=== PATIENT | male | born 1955 | race African-American/Black ===

== ENCOUNTER 2016-08-04 16:54 | Inpatient (IN) | payer OTHER ==
[2016-08-04 19:09] VITALS: BMI 19.8
--- NOTE | 2016-08-04 23:00 | HP ---
CIWA Score - CIWA Score Nausea/Vomitin Muscle Tremors: 2 Anxiety: 3 Agitation: 2 Paroxysmal Sweats: 1-Minimal Palms Moist Orientation: 1-Uncertain about Date Tacttile Disturbances: 0-None Auditory Disturbances: 1-Very Mild Visual Disturbances: 1-Very Mild Sensitivity Headache: 2-Mild CIWA-Ar Total Score: 15 Admission ROS BHS - HPI Chief Complaint: WITHDRAWAL SYMPTOMS Allergies/Adverse Reactions: Allergies Allergy/AdvReac Type Severity Reaction Status Date / Time No Known Allergies Allergy Verified 10/07/15 14:05 History of Present Illness: 61 Y.O. MAN WITH AN EXTENSIVE HISTORY ALCOHOL DEPENDENCE IS SEEKING DETOX. HE WAS HERE FOR DETOX AND REHAB IN 10/2015. HE REPORTS HIS LONGEST PERIOD OF SOBRIETY IS 3 YEARS. Exam Limitations: Physical Impairment (WALKS WITH CANE) - Ebola screening Have you traveled outside of the country in the last 21 days: No Have you had contact with anyone from an Ebola affected area: No Have you been sick,other than usual withdrawal symptoms: No Do you have a fever: No - Review of Systems Constitutional: Loss of Appetite EENT: reports: No Symptoms Reported Respiratory: reports: No Symptoms reported Cardiac: reports: No Symptoms Reported GI: reports: No Symptoms Reported : reports: No Symptoms Reported Musculoskeletal: reports: Back Pain Integumentary: reports: No Symptoms Reported Neuro: reports: No Symptoms reported Endocrine: reports: No Symptoms Reported Hematology: reports: No Symptoms Reported Psychiatric: reports: Anxious, Depressed Other Systems: Reviewed and Negative Patient History - Patient Medical History Hx Anemia: No Hx Asthma: Yes (ON ALBUTEROL INHALER) Hx Chronic Obstructive Pulmonary Disease (COPD): No Hx Cancer: No Hx Cardiac Disorders: No Hx Congestive Heart Failure: No Hx Hypertension: Yes (NON COMPLIANCE) Hx Hypercholesterolemia: No Hx Pacemaker: No HX Cerebrovascular Accident: No Hx Seizures: Yes (last episode 5 yrs withdrawal from alcohol) Hx Dementia: No Hx Diabetes: No Hx Gastrointestinal Disorders: No Hx Liver Disease: No Hx Genitourinary Disorders: No Hx Sexually Transmitted Disorders: Yes (treated for syphilis) Hx Renal Disease (ESRD): No Hx Thyroid Disease: No Hx Human Immunodeficiency Virus (HIV): No (2010 LAST NEGATIVE) Hx Hepatitis C: No Hx Depression: Yes Hx Suicide Attempt: Yes (OVERDOSE IN 1999) Hx Bipolar Disorder: No Hx Schizophrenia: No Other Medical History: CHRONIC PANCREATITIS - Patient Surgical History Past Surgical History: Yes Hx Neurologic Surgery: No Hx Cataract Extraction: No Hx Cardiac Surgery: No Hx Lung Surgery: No Hx Breast Surgery: No Hx Breast Biopsy: No Hx Abdominal Surgery: No Hx Appendectomy: No Hx Cholecystectomy: No Hx Genitourinary Surgery: No Hx Section: No Hx Orthopedic Surgery: Yes (lt knee-1995 FX OF LEFT PATELLA) Other Surgical History: LEFT FOOT IN 1996 Anesthesia Reaction: No - PPD History Previous Implant?: Yes Documented Results: Negative w/proof Implanted On Prior R Admission?: Yes Date: 10/05/15 Results: 0 mm PPD to be Administered?: No - Reproductive History Patient is a Female of Child Bearing Age (11 -55 yrs old): No - Smoking Cessation Smoking history: Current every day smoker Have you smoked in the past 12 months: Yes Aproximately how many cigarettes per day: 20 Hx Chewing Tobacco Use: No Initiated information on smoking cessation: Yes 'Breaking Loose' booklet given: 08/04/16 - Substance & Tx. History Hx Alcohol Use: Yes Hx Substance Use: No Substance Use Type: Alcohol Hx Substance Use Treatment: Yes (DETOX AND REHAB ) - Substances Abused Alcohol Route: Oral Frequency: Daily Amount used: 2 PINTS OF LIQUOR & 2 40OZ OF BEER Age of first use: 16 Date of Last Use: 08/04/16 Family Disease History - Family Disease History Family Disease History: CA: Mother (-BR CA ), Other: Father (ETOH ) Admission Physical Exam BHS - Vital Signs Vital Signs: Vital Signs - 24 hr 08/04/16 19:07 Temperature 97.6 F Pulse Rate 113 H Respiratory 20 Rate Blood Pressure 99/60 - Physical General Appearance: Yes: Disheveled, Thin, Anxious HEENTM: Yes: Hearing grossly Normal, Normal ENT Inspection, Normocephalic, Normal Voice Respiratory: Yes: Chest Non-Tender, Lungs Clear, Normal Breath Sounds, No Respiratory Distress, No Accessory Muscle Use Neck: Yes: No masses,lesions,Nodules Breast: Yes: Breast Exam Deferred Cardiology: Yes: Regular Rhythm, Regular Rate Abdominal: Yes: Normal Bowel Sounds, Non Tender, Flat, Soft Genitourinary: Yes: Within Normal Limits Back: Yes: Normal Inspection Musculoskeletal: Yes: Back pain, Joint Stiffness (WALKS WITH A CANE), Other Extremities: Yes: Normal Capillary Refill, Normal Inspection Neurological: Yes: Fully Oriented, Alert, Normal Response Integumentary: Yes: Normal Color, Dry, Warm - Addiitonal Findings: HARD OF HEARING - Diagnostic (1) Alcohol dependence with uncomplicated withdrawal Current Visit: Yes Status: Chronic (2) Nicotine dependence Current Visit: Yes Status: Chronic Qualifiers: Nicotine product type: cigarettes Comment: . (3) Asthma Current Visit: Yes Status: Chronic Qualifiers: Asthma severity: mild intermittent Comment: . (4) Hypertension Current Visit: Yes Status: Chronic Qualifiers: Hypertension type: essential hypertension Comment: . (5) Chronic pancreatitis Current Visit: Yes Status: Chronic (6) CAD (coronary artery disease) Current Visit: Yes Status: Chronic Comment: . (7) Hard of hearing Current Visit: Yes Status: Chronic Cleared for Admission S - Detox or Rehab [facility] Level of Care: Medically Managed Detox Regimen/Protocol: Librium [facility] Breath Alcohol Content Breath Alcohol Content: 0 Urine Drug Screen - Results Drug Screen Negative: No Urine Drug Screen Results: OPI-Opiates, BZO-Benzodiazepines, TCA-Tricyclic Antidepress
[2016-08-04] MEDS ORDERED: chlordiazePOXIDE HCL 25 MG CAPSULE PO ONE (23:10)
[2016-08-04] MEDS ORDERED: MENTHOL/PHENOL 1 EACH UD MM PRN (23:10)
[2016-08-04] MEDS ORDERED: LOPERAMIDE HCL 2 MG CAPSULE PO PRN (23:10)
[2016-08-04] MEDS ORDERED: NICOTINE POLACRILEX 2 MG GUM BC PRN (23:10)
[2016-08-04] MEDS ORDERED: ACETAMINOPHEN 325 MG TABLET (FP) PO PRN (23:10)
[2016-08-04] MEDS ORDERED: chlordiazePOXIDE HCL 25 MG CAPSULE PO PRN (23:10)
[2016-08-04] MEDS ORDERED: P-EPHED 60MG/TRIPROLIDI 2.5MG TABLET PO PRN (23:10)
[2016-08-04] MEDS ORDERED: MAGNESIUM HYDROX 2400MG/30ML ORAL SUSPENSION 30 ML CUP PO PRN (23:10)
[2016-08-04] MEDS ORDERED: MAGNESIUM CITRATE 300 ML BOTTLE PO PRN (23:10)
[2016-08-04] MEDS ORDERED: IBUPROFEN 400 MG TABLET (FP) PO PRN (23:10)
[2016-08-04] MEDS ORDERED: hydrOXYzine PAMOATE 50 MG CAPSULE (FP) PO PRN (23:10)
[2016-08-04] MEDS ORDERED: guaiFENesin/D-METHORPHAN HB 10 ML UNIT-DOSE CUPS PO PRN (23:10)
[2016-08-04] MEDS ORDERED: MAG HYDROX/AL HYDROX/SIMETH 30 ML UNIT-DOSE CUP PO PRN (23:10)
[2016-08-05 01:12] LABS: URINE APPEARANCE SLCLOUDY; URINE BILIRUBIN NEGATIVE (NEGATIVE); URINE BLOOD NEGATIVE (NEGATIVE); URINE COLOR AMBER; URINE GLUCOSE (UA) NEGATIVE (NEGATIVE); URINE KETONE NEGATIVE (NEGATIVE); URINE LEUK ESTERASE NEGATIVE (NEGATIVE); URINE NITRITE NEGATIVE (NEGATIVE); URINE UROBILINOGEN NEGATIVE E.U./dl (0.2-1.0)
[2016-08-05 01:13] LABS: URINE PROTEIN 1+ (NEGATIVE)
[2016-08-05 01:16] LABS: URINE HYALINE CAST 57 /lpf; URINE MUCUS MANY; URINE RBC <1 /hpf (0-3); URINE WBC 11 /hpf (3-5)
[2016-08-05] MEDS: diphenhydrAMINE HCL 50 MG CAPSULE PO PRN (01:46)
[2016-08-05] MEDS: chlordiazePOXIDE HCL 25 MG CAPSULE PO SCH ×5 (01:55→22:26)
[2016-08-05] MEDS: NICOTINE 21 MG/24 HOURS TOPICAL PATCH TD SCH (10:17)
[2016-08-05] MEDS: LIPASE/PROTEASE/AMYLASE 6,000 UNIT CAPSULE PO SCH ×3 (10:17→17:46)
[2016-08-05] MEDS: PRENATAL VITAMINS W/ FOLIC ACID TABLET (FP) PO SCH (10:17)
[2016-08-05 10:55] LABS: MCH 32.1 pg (25.7-33.7); MCHC 32.7 g/dl (32.0-35.9); MEAN CELL VOLUME 98.1 fl (80-96); MEAN PLT VOLUME 6.8 fl (7.5-11.1); PLATELET COUNT 231 K/MM3 (134-434); RDW 16.5 % (11.9-15.9); WHITE BLOOD COUNT 3.3 K/mm3 (4.0-10.0)
[2016-08-05 11:08] LABS: ALBUMIN 2.4 g/dl (3.4-5.0); ALK PHOS 116 U/L (45-117); ANION GAP 11 (8-16); BILIRUBIN,TOTAL 0.3 mg/dL (0.2-1.0); CALCIUM 9.2 mg/dL (8.5-10.1); CO2 25 mmol/L (21-32); CREATININE 1.1 mg/dL (0.7-1.3); GLUCOSE,RANDOM 108 mg/dL (74-106); SGOT/AST 20 U/L (15-37); SGPT/ALT 16 U/L (12-78); TOT PROT 6.5 g/dl (6.4-8.2)
--- NOTE | 2016-08-05 11:24 | PN ---
S CIWA - CIWA Score Nausea/Vomitin Muscle Tremors: 4-Moderate,w/Arms Extend Anxiety: 4-Mod. Anxious/Guarded Agitation: 4-Moderately Restless Paroxysmal Sweats: 3 Orientation: 0-Oriented Tacttile Disturbances: 1-Very Mild Itch/Numbness Auditory Disturbances: 0-None Visual Disturbances: 0-None Headache: 1-Very Mild CIWA-Ar Total Score: 20 BHS Progress Note (SOAP) Subjective: nausea, sweats, interrupted sleep, anxiety, tremors Objective: 08/05/16 11:22 Vital Signs - 24 hr 08/04/16 08/05/16 08/05/16 19:07 03:30 06:33 Temperature 97.6 F 96.1 F L Pulse Rate 113 H 102 H Respiratory 20 18 18 Rate Blood Pressure 99/60 95/67 tachycardia Laboratory Tests 08/05/16 08/05/16 08/05/16 00:23 08:00 08:00 WBC 3.3 L RBC 2.58 L D Hgb 8.3 L D Hct 25.3 L D MCV 98.1 H MCHC 32.7 RDW 16.5 H D Plt Count 231 D MPV 6.8 L Sodium 139 Potassium 4.0 Chloride 103 Urine Color Lisa Urine Appearance Slcloudy Urine pH 5.0 Ur Specific [place] 1.019 Urine Protein 1+ H Urine Glucose (UA) Negative Urine Ketones Negative Urine Blood Negative Urine Nitrite Negative Urine Bilirubin Negative Urine Urobilinogen Negative Ur Leukocyte Esterase Negative Urine RBC <1 Urine WBC 11 Ur Epithelial Cells Rare Hyaline Casts 57 Urine Mucus Many labs still epnding, anemia, macrocytosis, low WBC Assessment: 08/05/16 11:23 withdrawal sx, macrocytic anemia 2/2 substance use Plan: cont detox, repeat CBC, check pending bllod results
[2016-08-05] MEDS: FERROUS GLUCONATE 324 MG TAB (FP) PO SCH ×2 (12:44→20:17)
--- NOTE | 2016-08-05 14:31 | CONSULT ---
[facility] Psychiatric Consult - Data Date of interview: 08/05/16 Admission source: [facility] Identifying data: Guero Parsons is a 60 y/o AA male seeking detox treatment for alcohol dependence.He is ,a father of two,domiciled,unemployed and supported on SSI benefits. Substance Abuse History: - Smoking Cessation. Smoking history: Current every day smoker. Have you smoked in the past 12 months: Yes. Aproximately how many cigarettes per day: 20. Hx Chewing Tobacco Use: No. Initiated information on smoking cessation: Yes. 'Breaking Loose' booklet given: 08/04/16. - Substance & Tx. History. Hx Alcohol Use: Yes. Hx Substance Use: No. Substance Use Type : Alcohol. Hx Substance Use Treatment: Yes (DETOX AND REHAB ). - Substances Abused. Alcohol. Route: Oral. Frequency: Daily. Amount used: 2 PINTS OF LIQUOR & 2 40OZ OF BEER. Age of first use: 16. Date of Last Use: 08/04/16 Medical History: Significant for a history of alcohol-related seizures (last episode happened 2 years ago),bronchial asthma and hypertension.Noted history of orthosurgery (left knee in 1995 and right foot in 1996).Decreased hearing ( both ears). Psychiatric History: Diagnosed with MDD.Patient sees a psychiatrist at a community mental health clinic (name not recalled).Medications :prozac 40 mg/ day + trazodone 150 mg/hs. of girlfriend,in 2000,was the trigger of his first depressive episode.Symptoms worsened at the of his mother (2001) from breast cancer.No history of psychiatric hospitalizations.Mr Parsons reports that he took his medications two days ago.Patient reports history of one suicide attempt via overdose with alcohol and tylenol in 1999. Physical/Sexual Abuse/Trauma History: Patient denies. Additional Comment: Urine Drug Screen Results: OPI-Opiates, BZO-Benzodiazepines , TCA-Tricyclic Antidepressant.Noted. Mental Status Exam - Mental Status Exam Alert and Oriented to: Time, Place, Person Cognitive Function: Good Patient Appearance: Unkempt, Disheveled (tall stature) Mood: Hopeful Affect: Constricted Patient Behavior: Fatigued, Appropriate, Cooperative Speech Pattern: Clear Voice Loudness: Normal Thought Process: Goal Oriented Thought Disorder: Not Present Hallucinations: Denies Suicidal Ideation: Denies Homicidal Ideation: Denies Insight/Judgement: Poor Sleep: Poorly, Difficulty falling asleep (insists on getting trazodone at bedtime) Appetite: Poor, Weight loss Muscle strength/Tone: Normal Gait/Station: Other (slow) Psychiatric Findings - Problem List ([place] 1, 2,3) (1) Alcohol dependence with uncomplicated withdrawal Current Visit: Yes Status: Acute (2) Nicotine dependence Current Visit: Yes Status: Acute Qualifiers: Nicotine product type: cigarettes Comment: . (3) Major depressive disorder, recurrent, moderate Current Visit: Yes Status: Chronic Comment: . (4) Asthma Current Visit: Yes Status: Chronic Qualifiers: Asthma severity: mild intermittent Comment: . (5) CAD (coronary artery disease) Current Visit: Yes Status: Chronic Comment: . (6) Chronic pancreatitis Current Visit: Yes Status: Chronic (7) Hypertension Current Visit: Yes Status: Chronic Qualifiers: Hypertension type: essential hypertension Comment: . (8) Hard of hearing Current Visit: Yes Status: Chronic (9) GERD (gastroesophageal reflux disease) Current Visit: Yes Status: Chronic Qualifiers: Esophagitis presence: esophagitis presence not specified Qualified Code(s): K21.9 - Gastro-esophageal reflux disease without esophagitis Comment: . (10) Insomnia Current Visit: Yes Status: Acute - Initial Treatment Plan Initial Treatment Plan: Psychoeducation.Detoxification.Medications : prozac 40 mg po daily + trazodone 50 mg po hs (significantly reduced to prevent oversedation and falls).Side effects/benefits discussed with the patient.Made aware of the risk of priapism (instructed to alert MD/RN if painful/prolonged erection).Patient agrees with this careplan.Fall precautions.Observation.
[2016-08-05] MEDS: FLUoxetine HCL 20 MG CAPSULE (FP) PO SCH (15:58)
--- NOTE | 2016-08-05 18:21 | EKG ---
Test Reason : Blood Pressure : / mmHG Vent. Rate : 074 BPM Atrial Rate : 074 BPM P-R Int : 210 ms QRS Dur : 100 ms QT Int : 438 ms P-R-T Axes : 057 -16 059 degrees QTc Int : 486 ms SINUS RHYTHM WITH 1ST DEGREE A-V BLOCK PROLONGED QT ABNORMAL ECG NO PREVIOUS ECGS AVAILABLE Confirmed by VIC ANDERSON MD ([id number]) on 08/05/2016 6:20:31 PM Referred By: Confirmed By:VIC ANDERSON MD
[2016-08-05] MEDS ORDERED: traZODone HCL 50 MG TABLET (FP) PO SCH (22:00)
[2016-08-05] MEDS: THIAMINE HCL 100 MG TABLET (FP) PO SCH (22:25)
[2016-08-05] MEDS: traZODone HCL 50 MG TABLET (FP) PO SCH (22:26)
[2016-08-06] MEDS: chlordiazePOXIDE HCL 25 MG CAPSULE PO SCH ×3 (05:28→17:32)
[2016-08-06] MEDS: FERROUS GLUCONATE 324 MG TAB (FP) PO SCH ×3 (07:45→19:52)
[2016-08-06] MEDS: LIPASE/PROTEASE/AMYLASE 6,000 UNIT CAPSULE PO SCH ×3 (07:46→19:52)
[2016-08-06] MEDS: NICOTINE 21 MG/24 HOURS TOPICAL PATCH TD SCH (10:18)
[2016-08-06] MEDS: PRENATAL VITAMINS W/ FOLIC ACID TABLET (FP) PO SCH (10:18)
[2016-08-06] MEDS: FLUoxetine HCL 20 MG CAPSULE (FP) PO SCH (10:18)
[2016-08-06] MEDS ORDERED: BISACODYL 5 MG TABLET.DR (FP) PO ONE (12:15)
--- NOTE | 2016-08-06 13:42 | PN ---
S CIWA - CIWA Score Nausea/Vomitin Muscle Tremors: 3 Anxiety: 4-Mod. Anxious/Guarded Agitation: 4-Moderately Restless Paroxysmal Sweats: No Perspiration Orientation: 0-Oriented Tacttile Disturbances: 1-Very Mild Itch/Numbness Auditory Disturbances: 0-None Visual Disturbances: 0-None Headache: 2-Mild CIWA-Ar Total Score: 17 BHS Progress Note (SOAP) Subjective: Anxious, nausea, constipated x 2 days, interrupted sleep, sweating, tremor Objective: 08/06/16 13:36 Last Vital Signs Temp Pulse Resp BP Pulse Ox 96.4 F L 93 H 18 95/65 08/06/16 06:18 08/06/16 09:28 08/06/16 09:28 08/06/16 09:28 Laboratory Tests 08/05/16 08/05/16 08/05/16 00:23 08:00 08:00 WBC 3.3 L RBC 2.58 L D Hgb 8.3 L D Hct 25.3 L D MCV 98.1 H MCHC 32.7 RDW 16.5 H D Plt Count 231 D MPV 6.8 L Sodium 139 Potassium 4.0 Chloride 103 Carbon Dioxide 25 Anion Gap 11 BUN 12 D Creatinine 1.1 D Creat Clearance w eGFR > 60 Random Glucose 108 H Calcium 9.2 Total Bilirubin 0.3 AST 20 D ALT 16 D Alkaline Phosphatase 116 Total Protein 6.5 Albumin 2.4 L Urine Color Lisa Urine Appearance Slcloudy Urine pH 5.0 Ur Specific [place] 1.019 Urine Protein 1+ H Urine Glucose (UA) Negative Urine Ketones Negative Urine Blood Negative Urine Nitrite Negative Urine Bilirubin Negative Urine Urobilinogen Negative Ur Leukocyte Esterase Negative Urine RBC <1 Urine WBC 11 Ur Epithelial Cells Rare Hyaline Casts 57 Urine Mucus Many RPR Titer 08/05/16 08:00 WBC RBC Hgb Hct MCV MCHC RDW Plt Count MPV Sodium Potassium Chloride Carbon Dioxide Anion Gap BUN Creatinine Creat Clearance w eGFR Random Glucose Calcium Total Bilirubin AST ALT Alkaline Phosphatase Total Protein Albumin Urine Color Urine Appearance Urine pH Ur Specific [place] Urine Protein Urine Glucose (UA) Urine Ketones Urine Blood Urine Nitrite Urine Bilirubin Urine Urobilinogen Ur Leukocyte Esterase Urine RBC Urine WBC Ur Epithelial Cells Hyaline Casts Urine Mucus RPR Titer Nonreactive Labs noted: low h/h, UA 1+ protein Assessment: 08/06/16 13:38 Withdrawal symptoms Noted with anemia and proteinuria c/o Constipation Plan: Continue detox Anemia: continue ferrous sulfate Proteinuria: encourage to drink more water, repeat UA Constipation: dulcolax 10mg PO x 1 dose, colace 100mg PO qhs, encouraged to drink more water, monitor
[2016-08-06] MEDS: diphenhydrAMINE HCL 50 MG CAPSULE PO PRN (22:54)
[2016-08-06] MEDS: THIAMINE HCL 100 MG TABLET (FP) PO SCH (22:54)
[2016-08-06] MEDS: traZODone HCL 50 MG TABLET (FP) PO SCH (22:54)
[2016-08-06] MEDS: DOCUSATE SODIUM 100 MG CAPSULE (FP) PO SCH (22:54)
[2016-08-07] MEDS: chlordiazePOXIDE 5 MG CAPSULE PO SCH ×4 (00:15→16:54)
[2016-08-07] MEDS: FERROUS GLUCONATE 324 MG TAB (FP) PO SCH ×3 (07:44→16:53)
[2016-08-07] MEDS: LIPASE/PROTEASE/AMYLASE 6,000 UNIT CAPSULE PO SCH ×3 (07:44→16:53)
[2016-08-07 10:10] LABS: BASOPHIL 0.5 % (0-2.0); EOSINOPHIL 4.4 % (0-4.5); MCH 32.2 pg (25.7-33.7); MEAN CELL VOLUME 97.8 fl (80-96); MEAN PLT VOLUME 6.8 fl (7.5-11.1); NEUTROPHILS 59.5 % (42.8-82.8); PLATELET COUNT 253 K/MM3 (134-434); RDW 16.6 % (11.9-15.9); WHITE BLOOD COUNT 3.9 K/mm3 (4.0-10.0)
[2016-08-07] MEDS: PRENATAL VITAMINS W/ FOLIC ACID TABLET (FP) PO SCH (10:18)
[2016-08-07] MEDS: FLUoxetine HCL 20 MG CAPSULE (FP) PO SCH (10:18)
[2016-08-07] MEDS: NICOTINE 21 MG/24 HOURS TOPICAL PATCH TD SCH (10:19)
--- NOTE | 2016-08-07 12:10 | PN ---
[facility] Progress Note Note: Psychiatry Attending's note :
--- NOTE | 2016-08-07 13:37 | PN ---
S Progress Note (SOAP) Subjective: Sweating, Tremors, Interrupted Sleep. Objective: PT. A & O X 3. 08/07/16 13:36 Vital Signs Temperature 96.6 F L 08/07/16 13:20 Pulse Rate 105 H 08/07/16 13:20 Respiratory Rate 20 08/07/16 13:20 Blood Pressure 119/78 08/07/16 13:20 O2 Sat by Pulse Oximetry (%) Laboratory Last Values WBC 3.9 K/mm3 (4.0-10.0) L 08/07/16 07:00 RBC 2.59 M/mm3 (4.00-5.60) L 08/07/16 07:00 Hgb 8.4 GM/dL (11.7-16.9) L 08/07/16 07:00 Hct 25.3 % (35.4-49) L 08/07/16 07:00 MCV 97.8 fl (80-96) H 08/07/16 07:00 MCHC 33.0 g/dl (32.0-35.9) 08/07/16 07:00 RDW 16.6 % (11.9-15.9) H 08/07/16 07:00 Plt Count 253 K/MM3 (134-434) 08/07/16 07:00 MPV 6.8 fl (7.5-11.1) L 08/07/16 07:00 Neutrophils % 59.5 % (42.8-82.8) 08/07/16 07:00 Lymphocytes % 27.0 % (8-40) 08/07/16 07:00 Monocytes % 8.6 % (3.8-10.2) 08/07/16 07:00 Eosinophils % 4.4 % (0-4.5) 08/07/16 07:00 Basophils % 0.5 % (0-2.0) 08/07/16 07:00 Sodium 139 mmol/L (136-145) 08/05/16 08:00 Potassium 4.0 mmol/L (3.5-5.1) 08/05/16 08:00 Chloride 103 mmol/L (98-107) 08/05/16 08:00 Carbon Dioxide 25 mmol/L (21-32) 08/05/16 08:00 Anion Gap 11 (8-16) 08/05/16 08:00 BUN 12 mg/dL (7-18) D 08/05/16 08:00 Creatinine 1.1 mg/dL (0.7-1.3) D 08/05/16 08:00 Creat Clearance w eGFR > 60 (>60) 08/05/16 08:00 Random Glucose 108 mg/dL (74-106) H 08/05/16 08:00 Calcium 9.2 mg/dL (8.5-10.1) 08/05/16 08:00 Total Bilirubin 0.3 mg/dL (0.2-1.0) 08/05/16 08:00 AST 20 U/L (15-37) D 08/05/16 08:00 ALT 16 U/L (12-78) D 08/05/16 08:00 Alkaline Phosphatase 116 U/L (45-117) 08/05/16 08:00 Total Protein 6.5 g/dl (6.4-8.2) 08/05/16 08:00 Albumin 2.4 g/dl (3.4-5.0) L 08/05/16 08:00 Urine Color Lisa 08/05/16 00:23 Urine Appearance Slcloudy 08/05/16 00:23 Urine pH 5.0 (5.0-8.0) 08/05/16 00:23 Ur Specific [place] 1.019 (1.001-1.035) 08/05/16 00:23 Urine Protein 1+ (NEGATIVE) H 08/05/16 00:23 Urine Glucose (UA) Negative (NEGATIVE) 08/05/16 00:23 Urine Ketones Negative (NEGATIVE) 08/05/16 00:23 Urine Blood Negative (NEGATIVE) 08/05/16 00:23 Urine Nitrite Negative (NEGATIVE) 08/05/16 00:23 Urine Bilirubin Negative (NEGATIVE) 08/05/16 00:23 Urine Urobilinogen Negative E.U./dl (0.2-1.0) 08/05/16 00:23 Ur Leukocyte Esterase Negative (NEGATIVE) 08/05/16 00:23 Urine RBC <1 /hpf (0-3) 08/05/16 00:23 Urine WBC 11 /hpf (3-5) 08/05/16 00:23 Ur Epithelial Cells Rare /hpf (FEW) 08/05/16 00:23 Hyaline Casts 57 /lpf 08/05/16 00:23 Urine Mucus Many 08/05/16 00:23 RPR Titer Nonreactive (NONREACTIVE) 08/05/16 08:00 LABS NOTED. Assessment: 08/07/16 13:37 WITHDRAWAL SYMPTOMS. Plan: CONTINUE DETOX. ADVISED PT. TO FOLLOW-UP WITH [facility] ATTENDANT / REHAB MEDICAL PROVIDER AFTER DISCHARGE FROM DETOX FOR GENERAL MEDICAL ASSESSMENT AND FOR ABNORMAL LAB VALUES.
[2016-08-07 14:18] LABS: URINE APPEARANCE CLEAR; URINE BILIRUBIN NEGATIVE (NEGATIVE); URINE BLOOD NEGATIVE (NEGATIVE); URINE COLOR STRAW; URINE GLUCOSE (UA) NEGATIVE (NEGATIVE); URINE KETONE NEGATIVE (NEGATIVE); URINE LEUK ESTERASE NEGATIVE (NEGATIVE); URINE NITRITE NEGATIVE (NEGATIVE); URINE PROTEIN NEGATIVE (NEGATIVE); URINE UROBILINOGEN NEGATIVE E.U./dl (0.2-1.0)
[2016-08-07] MEDS ORDERED: traZODone HCL 100 MG TABLET (FP) PO SCH (22:00)
[2016-08-07] MEDS: chlordiazePOXIDE HCL 10 MG CAPSULE PO SCH (22:22)
[2016-08-07] MEDS: DOCUSATE SODIUM 100 MG CAPSULE (FP) PO SCH (22:22)
[2016-08-07] MEDS: THIAMINE HCL 100 MG TABLET (FP) PO SCH (22:22)
[2016-08-07] MEDS: diphenhydrAMINE HCL 50 MG CAPSULE PO PRN (22:24)
[2016-08-07] MEDS ORDERED: traZODone HCL 50 MG TABLET (FP) PO SCH (22:30)
[2016-08-08] MEDS: chlordiazePOXIDE HCL 10 MG CAPSULE PO SCH (06:04)
[2016-08-08 06:37] VITALS: BP 113/77; PULSE 84; TEMP 96.5
[2016-08-08] MEDS: FERROUS GLUCONATE 324 MG TAB (FP) PO SCH (07:33)
[2016-08-08] MEDS: LIPASE/PROTEASE/AMYLASE 6,000 UNIT CAPSULE PO SCH (07:34)
[2016-08-08] MEDS: PRENATAL VITAMINS W/ FOLIC ACID TABLET (FP) PO SCH (10:16)
[2016-08-08] MEDS: FLUoxetine HCL 20 MG CAPSULE (FP) PO SCH (10:16)
[2016-08-08] MEDS: NICOTINE 21 MG/24 HOURS TOPICAL PATCH TD SCH (10:16)
--- NOTE | 2016-08-08 10:47 | DS ---
[facility] Detox Discharge Summary Admission Date: 08/04/16 Discharge Date: 08/08/16 - History Present History: Alcohol Dependence Pertinent Past History: ASTHMA GERD CHRONIC PANCREATITIS CAD - Physical Exam Results Vital Signs: Vital Signs Temperature 96.5 F L 08/08/16 06:36 Pulse Rate 84 08/08/16 06:36 Respiratory Rate 16 08/08/16 06:36 Blood Pressure 113/77 08/08/16 06:36 O2 Sat by Pulse Oximetry (%) Pertinent Admission Physical Exam Findings: WITHDRAWAL SX. Laboratory Last Values WBC 3.9 K/mm3 (4.0-10.0) L 08/07/16 07:00 RBC 2.59 M/mm3 (4.00-5.60) L 08/07/16 07:00 Hgb 8.4 GM/dL (11.7-16.9) L 08/07/16 07:00 Hct 25.3 % (35.4-49) L 08/07/16 07:00 MCV 97.8 fl (80-96) H 08/07/16 07:00 MCHC 33.0 g/dl (32.0-35.9) 08/07/16 07:00 RDW 16.6 % (11.9-15.9) H 08/07/16 07:00 Plt Count 253 K/MM3 (134-434) 08/07/16 07:00 MPV 6.8 fl (7.5-11.1) L 08/07/16 07:00 Neutrophils % 59.5 % (42.8-82.8) 08/07/16 07:00 Lymphocytes % 27.0 % (8-40) 08/07/16 07:00 Monocytes % 8.6 % (3.8-10.2) 08/07/16 07:00 Eosinophils % 4.4 % (0-4.5) 08/07/16 07:00 Basophils % 0.5 % (0-2.0) 08/07/16 07:00 Sodium 139 mmol/L (136-145) 08/05/16 08:00 Potassium 4.0 mmol/L (3.5-5.1) 08/05/16 08:00 Chloride 103 mmol/L (98-107) 08/05/16 08:00 Carbon Dioxide 25 mmol/L (21-32) 08/05/16 08:00 Anion Gap 11 (8-16) 08/05/16 08:00 BUN 12 mg/dL (7-18) D 08/05/16 08:00 Creatinine 1.1 mg/dL (0.7-1.3) D 08/05/16 08:00 Creat Clearance w eGFR > 60 (>60) 08/05/16 08:00 Random Glucose 108 mg/dL (74-106) H 08/05/16 08:00 Calcium 9.2 mg/dL (8.5-10.1) 08/05/16 08:00 Total Bilirubin 0.3 mg/dL (0.2-1.0) 08/05/16 08:00 AST 20 U/L (15-37) D 08/05/16 08:00 ALT 16 U/L (12-78) D 08/05/16 08:00 Alkaline Phosphatase 116 U/L (45-117) 08/05/16 08:00 Total Protein 6.5 g/dl (6.4-8.2) 08/05/16 08:00 Albumin 2.4 g/dl (3.4-5.0) L 08/05/16 08:00 Urine Color Straw 08/07/16 09:40 Urine Appearance Clear 08/07/16 09:40 Urine pH 8.0 (5.0-8.0) D 08/07/16 09:40 Ur Specific [place] 1.012 (1.001-1.035) 08/07/16 09:40 Urine Protein Negative (NEGATIVE) 08/07/16 09:40 Urine Glucose (UA) Negative (NEGATIVE) 08/07/16 09:40 Urine Ketones Negative (NEGATIVE) 08/07/16 09:40 Urine Blood Negative (NEGATIVE) 08/07/16 09:40 Urine Nitrite Negative (NEGATIVE) 08/07/16 09:40 Urine Bilirubin Negative (NEGATIVE) 08/07/16 09:40 Urine Urobilinogen Negative E.U./dl (0.2-1.0) 08/07/16 09:40 Ur Leukocyte Esterase Negative (NEGATIVE) 08/07/16 09:40 Urine RBC <1 /hpf (0-3) 08/05/16 00:23 Urine WBC 11 /hpf (3-5) 08/05/16 00:23 Ur Epithelial Cells Rare /hpf (FEW) 08/05/16 00:23 Hyaline Casts 57 /lpf 08/05/16 00:23 Urine Mucus Many 08/05/16 00:23 RPR Titer Nonreactive (NONREACTIVE) 08/05/16 08:00 LABS NOTED - Treatment Hospital Course: Detox Protocol Followed, Detoxed Safely, Responded well, Discharged Condition Good, Rehab Referral Accepted - Medication Discharge Medications: Ambulatory Orders Albuterol Sulfate Inhaler - [Ventolin Hfa Inhaler -] 2 inh PO Q4H PRN 10/03/15 Fluoxetine HCl [Prozac] 40 mg PO DAILY 10/03/15 Multivitamins [Multivit ([facility] Formulary)] 1 tab PO DAILY 10/07/15 Ondansetron [Zofran -] 4 mg PO PRN 10/07/15 Thiamine HCl [Vitamin B-1] 100 mg PO DAILY 10/07/15 Tramadol HCl 50 mg PO TID PRN 10/07/15 Trazodone HCl [Desyrel -] 150 mg PO HS 10/07/15 Fluoxetine HCl [Prozac] 20 mg PO DAILY #30 capsule 10/21/15 Trazodone HCl 100 mg PO HS #30 tablet 10/21/15 Albuterol Sulfate Inhaler - [Ventolin HFA Inhaler -] 0 puff IH Q4H PRN #30 inhaler 10/22/15 Aspirin [ASA -] 81 mg PO DAILY #30 tab.chew 10/22/15 Diltiazem [Cardizem -] 30 mg PO TID #90 tablet 10/22/15 Diltiazem [Cardizem -] 30 mg PO TID #90 tablet 10/22/15 Hydrochlorothiazide [Hctz -] 25 mg PO DAILY #30 tablet 10/22/15 Pantoprazole Sodium [Protonix -] 40 mg PO DAILY #30 tablet.ec 10/22/15 Ranitidine [Zantac -] 150 mg PO Q12H #60 tablet 10/22/15 Fluoxetine HCl [Prozac -] 40 mg PO DAILY #30 capsule 08/05/16 - Diagnosis (1) Alcohol dependence with uncomplicated withdrawal Current Visit: Yes Status: Acute (2) Insomnia Current Visit: Yes Status: Acute (3) Nicotine dependence Current Visit: Yes Status: Acute Qualifiers: Nicotine product type: cigarettes (4) Asthma Current Visit: Yes Status: Chronic Qualifiers: Asthma severity: mild intermittent Asthma complication type: uncomplicated Qualified Code(s): J45.20 - Mild intermittent asthma, uncomplicated (5) CAD (coronary artery disease) Current Visit: Yes Status: Chronic Qualifiers: Coronary Disease-Associated Artery/Lesion type: [place] artery [place] vs. transplanted heart: [place] heart Associated angina: without angina Qualified Code(s): I25.10 - Atherosclerotic heart disease of [place] coronary artery without angina pectoris (6) Chronic pancreatitis Current Visit: Yes Status: Chronic Qualifiers: Pancreatitis type: alcohol induced Qualified Code(s): K86.0 - Alcohol-induced chronic pancreatitis (7) GERD (gastroesophageal reflux disease) Current Visit: Yes Status: Chronic Qualifiers: Esophagitis presence: esophagitis presence not specified Qualified Code(s): K21.9 - Gastro-esophageal reflux disease without esophagitis (8) Hard of hearing Current Visit: Yes Status: Chronic (9) Hypertension Current Visit: Yes Status: Chronic Qualifiers: Hypertension type: essential hypertension (10) Major depressive disorder, recurrent, moderate Current Visit: Yes Status: Chronic - AMA Did Patient Leave Against Medical Advice: No
[2016-08-08] MEDS ORDERED: traZODone HCL 50 MG TABLET (FP) PO SCH (22:00)
== END 2016-08-08 11:10 | disposition other institution (70) | DRG 775 ==
LOC: YASAS 16:54 → Y3N 22:14
PROVIDERS: ADMIT Internal Medicine; ATTEND Internal Medicine
PROC: HZ2ZZZZ Detoxification Services for Substance Abuse Treatment (ICD-10-PCS; principal; 2016-08-08)
DX: F10.230 Alcohol dependence with withdrawal, uncomplicated (principal); F17.210 Nicotine dependence, cigarettes, uncomplicated; F33.1 Major depressive disorder, recurrent, moderate; I25.10 Atherosclerotic heart disease of native coronary artery without angina pectoris; I10 Essential (primary) hypertension; J45.20 Mild intermittent asthma, uncomplicated; K21.9 Gastro-esophageal reflux disease without esophagitis; K86.0 Alcohol-induced chronic pancreatitis; G47.00 Insomnia, unspecified; H91.90 Unspecified hearing loss, unspecified ear
CPT/HCPCS: 36415; 80053; 81003; 81015; 85025; 85027; 86593; 93005; 93010